=== PATIENT | female | born 1940 | race Two or more races ===

== ENCOUNTER 2025-03-17 20:07 | Inpatient (IN) | payer OTHER ==
[~2025-03-17] VITALS: Ht 152.4 cm; Wt 63.5 kg
[2025-03-17] MEDS ORDERED: PIPERACILLIN/TAZOBACTAM SODIUM 3.375 GM VIAL IV ONE (20:15)
[2025-03-17] MEDS ORDERED: 0.9 % SODIUM CHLORIDE 1,000 ML IV ONE (20:15)
[2025-03-17] MEDS ORDERED: IPRATROPIUM BROMIDE 0.5 MG/2.5 ML AMPUL.NEB IH ONE (20:30)
[2025-03-17] MEDS ORDERED: LEVALBUTEROL HCL 0.63 MG/3 ML SOLUTION IH ONE (20:30)
[2025-03-17 20:43] LABS: ABG PH 7.245 (7.35-7.45); ABG PO2 264.2 mmHg (80-100); BASE EXCESS 3.4 mmol/l; BICARBONATE 33.6 mmol/l (23-25); SaO2 99.8 %
[2025-03-17] MEDS ORDERED: NOREPINEPHRINE BITARTRATE 8 MG in DEXTROSE 5 % IN WATER 250 ML IV SCH (21:15)
[2025-03-17 21:25] LABS: BASO % 0.4 % (0.1-1.2); EOS # 0.02 (0.04-0.54); EOS % 0.1 % (0.7-7.0); HEMATOCRIT 47.3 % (34.1-44.9); HEMOGLOBIN 13.5 g/dL (11.2-15.7); LYMPH # 1.97 (1.18-3.74); LYMPH % 14.1 % (19.3-53.1); MEAN CORPUSCULAR HEMOGLOBIN 27.2 pg (25.6-32.2); MONO # 0.74 (0.24-0.82); MONO % 5.3 % (4.7-12.5); NEUT # 11.07 (1.56-6.13); NEUT % 79.6 % (34.0-71.1); PLATELET COUNT 255 K/uL (163-369); RED BLOOD COUNT 4.96 M/uL (3.93-5.22); RED CELL DISTRIBUTION WIDTH 18.8 % (11.6-14.4)
[2025-03-17 21:26] LABS: INR 2.39; PARTIAL THROMBOPLASTIN TIME 34.5 SECONDS (22.0-34.0)
[2025-03-17 21:26] LABS: URINE APPEARANCE Turbid; URINE BILIRRUBIN Negative (NEGATIVE); URINE BLOOD Moderate; URINE COLOR Yellow; URINE GLUCOSE Negative (NEGATIVE); URINE KETONE Negative (NEGATIVE); URINE LEUKOCYTE Large; URINE NITRATE Negative; URINE UROBILINOGEN 0.2 E.U./dl
[2025-03-17 21:27] LABS: URINE BACTERIA 2549.5 uL (0.0-1933); URINE CAST 3.78 uL (0.0-1.40); URINE EPITHELIAL CELLS 4.5 uL (0.0-38.8); URINE RBC 237.8 uL (0.0-20.8)
[2025-03-17 21:27] LABS: ALBUMIN 2.7 gm/dL (3.4-5.0); BILIRUBIN TOTAL 1.88 mg/dL (0.3-1.2); CALCIUM 8.5 mg/dL (8.5-10.1); CREATININE SERUM 2.29 mg/dL (0.55-1.02); GFR 20.25; GLOBULINA 3.3 G/DL (2.4-3.5); POTASSIUM 4.33 mEq/L (3.5-5.1)
[2025-03-17 21:28] LABS: PROTHROMBIN TIME 24.4 SECONDS (9.0-11.5)
[2025-03-17 21:43] LABS: URINE CRYSTALS NEGATIVE /HPF; URINE MUCUS MODERATE; URINE PROTEIN 100 (NEGATIVE); URINE WBC > 5548.3 uL (0.0-23.2); URINE YEAST FEW /hpf
[2025-03-17 22:04] LABS: ABG pCO2 79.2 mmHg (35-45); allen test SATISFACTORY; mode BPAP; puncture site RADIAL LEFT
[2025-03-17 22:05] LABS: o2 100 %
[2025-03-17] MEDS ORDERED: KAPSPARGO SPRIN25 MG PO (22:29)
[2025-03-17] MEDS ORDERED: FUROsemide 20 MG/2 ML VIAL IV ONE (22:30)
[2025-03-17] MEDS ORDERED: ELIQUIS2.5 MG PO (22:30)
[2025-03-17] MEDS ORDERED: PROTONIX20 MG PO (22:30)
[2025-03-17] MEDS ORDERED: LASIX20 MG (22:30)
--- NOTE | 2025-03-17 22:30 | NUR ---
PACIENTE TRAIDA EN AMBULANCIA, SE OBSERVA LETARGICA. FAMILIARES REFIEREN QUE TRAEN PACIENTE POR DIFICIULTAD RESPIRATORIA. PERSONAL DE AMBULANCIA VIOLA PACIENTE CON AMBU, PACIENTE SATURANDO EN 76%. SE ACOMODA PACIENTE EN AREA DE CRITICO, CAMA #3 CONECTADA A MONITOR CARDIACO Y OXIMETRIA DE PULSO CONTINUA. FAMILIARES FIRMAN DNR Y DNI.
--- NOTE | 2025-03-17 22:38 | NUR ---
SE EXTRAEN MUESTRAS DE LABORATORIO Y SE ADMINISTRAN MEDICAMENTOS YENI ORDEN MEDICA.
[2025-03-17] MEDS ORDERED: SODIUM BICARBONATE 1 MEQ/ML DISP.SYRIN 50ML IV ONE (23:15)
--- NOTE | 2025-03-18 00:03 | NUR ---
SE RECIBE PTE LETARGICA EN CAMA # 3 DE UNIDAD DE CRITICO EN CAMA CON CABECERA A 45 GRADOS CONECTADA MONITOR CARDIACO CON OXIMETRIA CONTINUA. PTE CON H/L X2 LIBRES DE EDEMA CON IV FLUIDS DE 0.9NSS BAJANDO A 80ML/HR Y DRIP DE LEVOPHED 8MG/250ML D5W BAJANDO A 5ML/HR. PTE CON BPAP COLOCADO CON LOS SIGUENTES PARAMETROS IPAP 16, EPAP 6, FIO 90%, RR 20/MIN. PTE CON VIRK COLOCADO BAJANDO A GRAVEDAD. SE MIDEN S/V A PTE Y SE DOCUMENTAN. SE TITULA DRIP DE LEVOPHED A 20ML/HR. SE NOTIFICA ESTUDIO DE CT PENDIENTE A REALIZAR. SE CASSANDRA MUESTRAS DE COVID Y INFLUENZA PENDIENTES. PTE CON DNR+DNI FIRMADO EN RECORD Y SISTEMA. PTE SE CONTINUA MONITORIANDO POR CAMBIOS.
[2025-03-18 00:30] LABS: COVID-19 AG NEGATIVE (NEGATIVE)
[2025-03-18 00:31] LABS: INFLUENZA A AG NEGATIVE (NEGATIVE); INFLUENZA B AG NEGATIVE (NEGATIVE)
[2025-03-18] MEDS ORDERED: FUROsemide 40 MG/4 ML VIAL IV SCH ×2 (01:00→17:00)
[2025-03-18] MEDS ORDERED: LEVALBUTEROL HCL 0.63 MG/3 ML SOLUTION IH SCH (06:56)
[2025-03-18] MEDS ORDERED: CEFTRIAXONE SODIUM 1,000 MG VIAL IV STA (06:57)
--- NOTE | 2025-03-18 07:50 | NUR ---
SE RECIBE PACIENTE ALERTA A ESTIMULOS AL MOMENTO EN AREA DE ICU-2 EN POSICION SEMI SENTADA CONECTADA A MONITOR CARDIACO Y OXIMETRIA DE PULSO CONTINUA. AL MOMENTO PACIENTE SE ENCUENTRA CON BIPAP. PACIENTE SE ENCUENTRA CANALIZADA CON ANGIOS #20 Y #24. AL MOMENTO PACIENTE SE ENCUENTRA CON 0.9NSS BAJANDO A 40ML/HRS Y LEVOPHED DE 8MG/250ML BAJANDO A 30ML/HRS. AL MOMENTO PACIENTE SE ENCUENTRA CON SONDA URINARIA BAJANDO POR GRAVEDAD CON EGRESO COLOR AMARILLO BRUMOSO.
[2025-03-18 08:15] LABS: ABG PO2 123.4 mmHg (80-100); BICARBONATE 36.9 mmol/l (23-25); SaO2 97.7 %; Tco2 39.9 mmol/l
[2025-03-18 08:36] LABS: ABG pCO2 96.3 mmHg (35-45); mode BPAP; o2 50 %; puncture site RT FEMORAL
[2025-03-18 08:37] LABS: ABG PH 7.201 (7.35-7.45)
[2025-03-18] MEDS ORDERED: MEROPENEM 1,000 MG VIAL IV STA (08:52)
[2025-03-18] MEDS ORDERED: LINEZOLID IN DEXTROSE 5% 600 MG/300 ML PIGGYBAG IV STA (08:54)
[2025-03-18] MEDS ORDERED: MEROPENEM 1,000 MG VIAL IV SCH (09:00)
[2025-03-18] MEDS ORDERED: LINEZOLID IN DEXTROSE 5% 600 MG/300 ML PIGGYBAG IV SCH (09:00)
[2025-03-18] MEDS ORDERED: PANTOPRAZOLE SODIUM 40 MG/VIAL VIAL IV SCH (09:08)
[2025-03-18] MEDS ORDERED: HYDROCORTISONE SODIUM SUCC/PF 50 MG/ML ML IV STA (09:09)
[2025-03-18] MEDS ORDERED: VASOPRESSIN 40 UNITS in 0.9 % SODIUM CHLORIDE 100 ML IV SCH (09:30)
[2025-03-18 10:12] LABS: BASO % 0.1 % (0.1-1.2); EOS # 0.01 (0.04-0.54); HEMATOCRIT 46.8 % (34.1-44.9); LYMPH # 1.49 (1.18-3.74); LYMPH % 6.9 % (19.3-53.1); MEAN CORPUSCULAR HEMOGLOBIN 26.7 pg (25.6-32.2); MONO # 0.95 (0.24-0.82); MONO % 4.4 % (4.7-12.5); NEUT % 88.2 % (34.0-71.1); PLATELET COUNT 272 K/uL (163-369); RED BLOOD COUNT 4.87 M/uL (3.93-5.22); RED CELL DISTRIBUTION WIDTH 18.4 % (11.6-14.4)
[2025-03-18 10:42] LABS: ERYTHROCYTE SEDIMENTATION RATE 31 mm/hr (0-30)
[2025-03-18 11:33] LABS: ALBUMIN 2.8 gm/dL (3.4-5.0); CALCIUM 8.6 mg/dL (8.5-10.1); CREATININE SERUM 2.35 mg/dL (0.55-1.02); GFR 19.66; GLOBULINA 3.9 G/DL (2.4-3.5); MAGNESIUM 1.6 mg/dL (1.8-2.4); PHOSPHOROUS 4.8 mg/dL (2.5-4.9); POTASSIUM 3.93 mEq/L (3.5-5.1); TOTAL PROTEIN 6.7 gm/dL (6.4-8.2)
[2025-03-18 11:34] LABS: C-REACTIVE PROTEIN 8.94 MG/DL (0.00-0.29); TSH 5.28 uIU/mL (0.358-3.74)
[2025-03-18] MEDS ORDERED: MAGNESIUM SULFATE IN WATER 50 ML IV NR (12:00)
[2025-03-18] MEDS ORDERED: DEXTROSE 5 % IN WATER 1,000 ML IV SCH (12:15)
[2025-03-18] MEDS ORDERED: FLUCONAZOLE IN NACL,ISO-OSM 200 ML IV NR (12:15)
[2025-03-18] MEDS ORDERED: HYDROCORTISONE SODIUM SUCC/PF 50 MG/ML ML IV SCH (17:00)
[2025-03-18 18:09] VITALS: BP 123/70; O2SAT 100
[2025-03-18 18:46] VITALS: BP 92/54
[2025-03-18 19:51] VITALS: BP 90/55; O2SAT 97
[2025-03-18] MEDS ORDERED: MEROPENEM 500 MG/VIAL VIAL IV SCH (21:00)
[2025-03-18 21:15] VITALS: BP 105/68
[2025-03-18 22:49] VITALS: BP 116/80
[2025-03-18 23:22] VITALS: BP 127/65; O2SAT 97
[2025-03-19] VITALS (25 sets, daily range): BP systolic 92–165; BP diastolic 54–88; O2SAT 97–100
[2025-03-19 07:05] LABS: HEMATOCRIT 42.2 % (34.1-44.9); HEMOGLOBIN 12.3 g/dL (11.2-15.7); RED BLOOD COUNT 4.37 M/uL (3.93-5.22)
[2025-03-19 07:06] LABS: BASO % 0.1 % (0.1-1.2); LYMPH # 0.83 (1.18-3.74); LYMPH % 4.4 % (19.3-53.1); MEAN CORPUSCULAR HEMOGLOBIN 28.1 pg (25.6-32.2); MONO % 4.3 % (4.7-12.5); NEUT # 17.07 (1.56-6.13); NEUT % 90.7 % (34.0-71.1); PLATELET COUNT 273 K/uL (163-369); RED CELL DISTRIBUTION WIDTH 17.9 % (11.6-14.4)
[2025-03-19 07:26] LABS: ALBUMIN 2.7 gm/dL (3.4-5.0); BILIRUBIN TOTAL 0.91 mg/dL (0.3-1.2); CALCIUM 8.2 mg/dL (8.5-10.1); CREATININE SERUM 2.54 mg/dL (0.55-1.02); GFR 17.97; GLOBULINA 3.2 G/DL (2.4-3.5); PHOSPHOROUS 4.9 mg/dL (2.5-4.9); POTASSIUM 3.49 mEq/L (3.5-5.1); TOTAL PROTEIN 5.9 gm/dL (6.4-8.2)
[2025-03-19] MEDS ORDERED: ENOXAPARIN SODIUM 30 MG/0.3 ML SYRINGE SUBCUTANEO SCH (09:00)
[2025-03-19] MEDS ORDERED: FLUCONAZOLE IN NACL,ISO-OSM 100 ML IV SCH (09:00)
[2025-03-19] MEDS ORDERED: HYDROCORTISONE SODIUM SUCC/PF 100 MG VIAL IV SCH (09:00)
[2025-03-19 09:53] LABS: ABG PH 7.257 (7.35-7.45); ABG PO2 360.4 mmHg (80-100); BASE EXCESS 2.2 mmol/l; SaO2 99.9 %
[2025-03-19 09:54] LABS: BICARBONATE 31.8 mmol/l (23-25); Tco2 34.1 mmol/l
[2025-03-19 09:55] LABS: allen test SATISFACTORY; mode BPAP; o2 100 %; puncture site RADIAL RIGHT
[2025-03-19] MEDS ORDERED: DEXTROSE 50 % IN WATER 0.5 G/ML VIAL IV PRN (10:15)
[2025-03-19] MEDS ORDERED: INSULIN LISPRO 1,000 UNIT/10 ML UNITS SUBCUTANEO PRN (10:15)
[2025-03-19] MEDS ORDERED: POTASSIUM CHLORIDE 20MEQ/100ML H2O PB IV NR (11:00)
[2025-03-19] MEDS ORDERED: FUROsemide 40 MG/4 ML VIAL IV SCH (17:00)
[2025-03-19] MEDS ORDERED: HYDROCORTISONE SODIUM SUCC/PF 50 MG/ML ML IV SCH (17:00)
[2025-03-19] MEDS ORDERED: AMINO ACIDS 4.25 %/DEXTROSE 5% 1,000 ML PERIFERAL SCH (17:00)
[2025-03-19 22:25] LABS: CHOL HDL RATIO 2.3 (0-5.0)
[2025-03-20] VITALS (22 sets, daily range): BP systolic 82–101; BP diastolic 54–71; O2SAT 97–100
[2025-03-20 09:26] LABS: BILIRUBIN TOTAL 0.66 mg/dL (0.3-1.2); CALCIUM 7.6 mg/dL (8.5-10.1); CREATININE SERUM 2.68 mg/dL (0.55-1.02); GFR 16.89; GLOBULINA 2.9 G/DL (2.4-3.5); MAGNESIUM 1.5 mg/dL (1.8-2.4); PHOSPHOROUS 2.8 mg/dL (2.5-4.9); TOTAL PROTEIN 4.9 gm/dL (6.4-8.2)
[2025-03-20 09:32] LABS: POTASSIUM 2.95 mEq/L (3.5-5.1)
[2025-03-20 10:10] LABS: ABG PH 7.343 (7.35-7.45); ABG PO2 153.5 mmHg (80-100); ABG pCO2 59.4 mmHg (35-45); BICARBONATE 31.5 mmol/l (23-25); SaO2 99.2 %; Tco2 33.4 mmol/l
[2025-03-20 10:18] LABS: allen test NO SATISFACTORY; mode BPAP; o2 50 %; puncture site RADIAL RIGHT
[2025-03-20] MEDS ORDERED: MAGNESIUM SULFATE IN WATER 50 ML IV STA (10:18)
[2025-03-20 10:29] LABS: BASO % 0.1 % (0.1-1.2); HEMATOCRIT 34.1 % (34.1-44.9); LYMPH % 2.4 % (19.3-53.1); MEAN CORPUSCULAR HEMOGLOBIN 28.1 pg (25.6-32.2); MONO # 0.53 (0.24-0.82); MONO % 3.2 % (4.7-12.5); NEUT # 15.34 (1.56-6.13); NEUT % 93.8 % (34.0-71.1); PLATELET COUNT 165 K/uL (163-369); RED BLOOD COUNT 3.67 M/uL (3.93-5.22)
[2025-03-20] MEDS ORDERED: DEXTROSE 50 % IN WATER 0.5 G/ML VIAL IV PRN (10:30)
[2025-03-20] MEDS ORDERED: INSULIN LISPRO 1,000 UNIT/10 ML UNITS SUBCUTANEO PRN (10:30)
[2025-03-20] MEDS ORDERED: RINGERS SOLUTION,LACTATED 1,000 ML IV SCH (10:30)
[2025-03-20 10:31] LABS: HEMOGLOBIN 10.3 g/dL (11.2-15.7)
[2025-03-20] MEDS ORDERED: POTASSIUM CHLORIDE IN WATER 40 MEQ/100 ML PIGGYBAG IV SCH (13:00)
[2025-03-20] MEDS ORDERED: MAGNESIUM SULFATE IN WATER 2 GM/50 ML PIGGYBAG IV NR (14:30)
[2025-03-20] MEDS ORDERED: BUMETANIDE 2.5 MG/10 ML VIAL IV SCH (17:00)
[2025-03-20] MEDS ORDERED: FUROsemide 20 MG/2 ML VIAL IV SCH (17:00)
[2025-03-20] MEDS ORDERED: HYDROCORTISONE SODIUM SUCC/PF 100 MG VIAL IV SCH (21:00)
[2025-03-21] VITALS (21 sets, daily range): BP systolic 81–123; BP diastolic 49–79; O2SAT 95–979
[2025-03-21 05:38] LABS: ABG PO2 138.2 mmHg (80-100); BASE EXCESS 3.2 mmol/l; BICARBONATE 29.5 mmol/l (23-25); SaO2 99.1 %
[2025-03-21 06:05] LABS: allen test SATISFACTORY; mode BPAP; o2 50 %; puncture site RADIAL RIGHT
[2025-03-21 06:57] LABS: BASO % 0.1 % (0.1-1.2); HEMATOCRIT 34.7 % (34.1-44.9); HEMOGLOBIN 10.8 g/dL (11.2-15.7); LYMPH % 3.3 % (19.3-53.1); MEAN CORPUSCULAR HEMOGLOBIN 28.1 pg (25.6-32.2); MONO # 0.46 (0.24-0.82); NEUT % 93.1 % (34.0-71.1); PLATELET COUNT 167 K/uL (163-369); RED BLOOD COUNT 3.85 M/uL (3.93-5.22); RED CELL DISTRIBUTION WIDTH 18.1 % (11.6-14.4)
[2025-03-21 10:30] LABS: ABG PH 7.422 (7.35-7.45); ABG PO2 74.6 mmHg (80-100); ABG pCO2 46.6 mmHg (35-45); BASE EXCESS 4.4 mmol/l; BICARBONATE 29.7 mmol/l (23-25); SaO2 95.3 %; Tco2 31.1 mmol/l
[2025-03-21 10:35] LABS: allen test SATISFACTORY; mode VENTURY MASK; o2 50 %; puncture site RADIAL RIGHT
[2025-03-21 12:59] LABS: ALBUMIN 2.2 gm/dL (3.4-5.0); CALCIUM 8.4 mg/dL (8.5-10.1); CREATININE SERUM 2.84 mg/dL (0.55-1.02); GFR 15.8; MAGNESIUM 2.5 mg/dL (1.8-2.4); POTASSIUM 4.99 mEq/L (3.5-5.1)
[2025-03-21 13:09] LABS: PHOSPHOROUS 1.6 mg/dL (2.5-4.9)
[2025-03-21] MEDS ORDERED: SOD PHOSPHATE,MONOBASIC-DIBAS 3 MMOL/ML VIAL IV SCH (17:00)
[2025-03-21] MEDS ORDERED: POTASSIUM PHOS,M-BASIC-D-BASIC 3 MM/ML VIAL IV SCH (17:00)
[2025-03-21] MEDS ORDERED: 0.9 % SODIUM CHLORIDE 1,000 ML IV SCH (20:00)
[2025-03-21] MEDS ORDERED: HYDROCORTISONE SODIUM SUCC/PF 50 MG/ML ML IV SCH (21:00)
[2025-03-22] VITALS (12 sets, daily range): BP systolic 94–127; BP diastolic 55–78; O2SAT 10–100
[2025-03-22 06:41] LABS: BASO % 0.1 % (0.1-1.2); HEMATOCRIT 32.5 % (34.1-44.9); HEMOGLOBIN 10.5 g/dL (11.2-15.7); LYMPH # 0.32 (1.18-3.74); LYMPH % 2.7 % (19.3-53.1); MEAN CORPUSCULAR HEMOGLOBIN 28.2 pg (25.6-32.2); MONO # 0.22 (0.24-0.82); MONO % 1.9 % (4.7-12.5); NEUT # 11.21 (1.56-6.13); NEUT % 94.9 % (34.0-71.1); PLATELET COUNT 152 K/uL (163-369); RED BLOOD COUNT 3.73 M/uL (3.93-5.22); RED CELL DISTRIBUTION WIDTH 18.3 % (11.6-14.4)
[2025-03-22 07:13] LABS: ALBUMIN 2.2 gm/dL (3.4-5.0); BILIRUBIN TOTAL 0.9 mg/dL (0.3-1.2); CALCIUM 7.8 mg/dL (8.5-10.1); CREATININE SERUM 2.94 mg/dL (0.55-1.02); GFR 15.18; GLOBULINA 2.5 G/DL (2.4-3.5); MAGNESIUM 2.2 mg/dL (1.8-2.4); PHOSPHOROUS 3.2 mg/dL (2.5-4.9); POTASSIUM 4.54 mEq/L (3.5-5.1); TOTAL PROTEIN 4.7 gm/dL (6.4-8.2)
[2025-03-22] MEDS ORDERED: CEFTRIAXONE SODIUM 2,000 MG in 0.9 % SODIUM CHLORIDE 100 ML IV SCH (09:00)
[2025-03-22] MEDS ORDERED: MIDODRINE HCL 5 MG TABLET PO SCH (17:00)
[2025-03-23 04:00] VITALS: BP 119/83; O2SAT 97
[2025-03-23 07:21] VITALS: BP 103/71; O2SAT 27
[2025-03-23 08:07] LABS: ALBUMIN 2.5 gm/dL (3.4-5.0); BILIRUBIN TOTAL 0.97 mg/dL (0.3-1.2); CALCIUM 8.1 mg/dL (8.5-10.1); CREATININE SERUM 2.94 mg/dL (0.55-1.02); GFR 15.18; GLOBULINA 2.9 G/DL (2.4-3.5); MAGNESIUM 2.1 mg/dL (1.8-2.4); POTASSIUM 4.25 mEq/L (3.5-5.1); TOTAL PROTEIN 5.4 gm/dL (6.4-8.2)
[2025-03-23 08:15] LABS: BASO % 0.1 % (0.1-1.2); HEMATOCRIT 35.3 % (34.1-44.9); HEMOGLOBIN 11.3 g/dL (11.2-15.7); LYMPH # 0.34 (1.18-3.74); MEAN CORPUSCULAR HEMOGLOBIN 27.6 pg (25.6-32.2); MONO # 0.26 (0.24-0.82); MONO % 2.3 % (4.7-12.5); NEUT # 10.51 (1.56-6.13); NEUT % 94.1 % (34.0-71.1); PLATELET COUNT 144 K/uL (163-369); RED CELL DISTRIBUTION WIDTH 18.6 % (11.6-14.4)
[2025-03-23 08:31] LABS: ABG PH 7.373 (7.35-7.45); ABG PO2 85.3 mmHg (80-100); ABG pCO2 44.7 mmHg (35-45); BASE EXCESS -0.1 mmol/l; BICARBONATE 25.4 mmol/l (23-25); SaO2 96.1 %; Tco2 26.8 mmol/l
[2025-03-23] MEDS ORDERED: HYDROCORTISONE SODIUM SUCC/PF 50 MG/ML ML IV SCH (09:00)
[2025-03-23 10:00] LABS: allen test SATISFACTORY; mode VENTURY MASK; o2 50 %; puncture site RADIAL RIGHT
[2025-03-23 12:00] VITALS: BP 144/85; O2SAT 100
[2025-03-23 15:14] VITALS: BP 101/58; O2SAT 100
[2025-03-23] MEDS ORDERED: SOD FERRIC GLUC COMPLX/SUCROSE 62.5 MG/5 ML AMPUL IV SCH (17:00)
[2025-03-23 20:33] VITALS: BP 118/74; O2SAT 100
[2025-03-23 23:12] VITALS: BP 122/72; O2SAT 97
[2025-03-24] VITALS (23 sets, daily range): BP systolic 75–129; BP diastolic 31–95; O2SAT 80–98
[2025-03-24] MEDS ORDERED: NOREPINEPHRINE BITARTRATE 1 MG/ML AMPUL IV ONE (01:34)
[2025-03-24] MEDS ORDERED: NOREPINEPHRINE BITARTRATE 8 MG in DEXTROSE 5 % IN WATER 250 ML IV SCH (01:45)
[2025-03-24 08:47] LABS: BASO % 0.1 % (0.1-1.2); HEMATOCRIT 35.9 % (34.1-44.9); HEMOGLOBIN 11.1 g/dL (11.2-15.7); LYMPH # 0.27 (1.18-3.74); LYMPH % 1.7 % (19.3-53.1); MONO # 0.71 (0.24-0.82); MONO % 4.4 % (4.7-12.5); NEUT # 15.12 (1.56-6.13); NEUT % 93.3 % (34.0-71.1); RED BLOOD COUNT 3.97 M/uL (3.93-5.22); RED CELL DISTRIBUTION WIDTH 18.4 % (11.6-14.4)
[2025-03-24] MEDS ORDERED: BUMETANIDE 2.5 MG/10 ML VIAL IV SCH (09:00)
[2025-03-24] MEDS ORDERED: AMIODARONE HCL 900 MG in DEXTROSE 5 % IN WATER 500 ML IV SCH (09:00)
[2025-03-24 09:02] LABS: PLATELET COUNT 102 K/uL (163-369)
[2025-03-24 09:27] LABS: ABG PH 7.213 (7.35-7.45); ABG pCO2 54.2 mmHg (35-45); BASE EXCESS -7.1 mmol/l; BICARBONATE 21.3 mmol/l (23-25); SaO2 95.2 %
[2025-03-24 09:31] LABS: allen test SATISFACTORY; o2 50 %; puncture site BRADIAL LEFT
[2025-03-24 10:31] LABS: ALBUMIN 2.5 gm/dL (3.4-5.0); BILIRUBIN TOTAL 1.2 mg/dL (0.3-1.2); CALCIUM 8.1 mg/dL (8.5-10.1); CREATININE SERUM 3.42 mg/dL (0.55-1.02); GFR 12.75; GLOBULINA 2.9 G/DL (2.4-3.5); MAGNESIUM 1.9 mg/dL (1.8-2.4); PHOSPHOROUS 6.3 mg/dL (2.5-4.9); POTASSIUM 4.87 mEq/L (3.5-5.1); TOTAL PROTEIN 5.4 gm/dL (6.4-8.2)
[2025-03-24] MEDS ORDERED: MEROPENEM 500 MG/VIAL VIAL IV SCH (14:12)
[2025-03-24] MEDS ORDERED: ANIDULAFUNGIN 100 MG VIAL IV NR (16:00)
[2025-03-24] MEDS ORDERED: (FF) Daptomycin 50 MG/ML IV SCH (17:00)
[2025-03-25] VITALS (24 sets, daily range): BP systolic 28–128; BP diastolic 40–89; O2SAT 88–100
[2025-03-25 09:57] LABS: ABG PH 7.144 (7.35-7.45)
[2025-03-25 09:58] LABS: ABG PO2 80.4 mmHg (80-100); ABG pCO2 60.4 mmHg (35-45); BASE EXCESS -9.5 mmol/l; BICARBONATE 20.3 mmol/l (23-25); SaO2 90.1 %; Tco2 22.1 mmol/l; allen test SATISFACTORY; mode BPAP; o2 100 %; puncture site RADIAL LEFT
[2025-03-25] MEDS ORDERED: AA 5 %/CALCIUM/LYTES/DEXT 20 % 2,000 ML CENTRAL SCH (17:00)
[2025-03-25] MEDS ORDERED: ANIDULAFUNGIN 100 MG VIAL IV SCH (17:00)
[2025-03-25 18:33] LABS: ANION GAP 16 (10.0-20.0); BLOOD UREA NITROGEN 75 mg/dL (7-18); BUN CREA RATIO 20 (7.0-25.0); CALCIUM 7.3 mg/dL (8.5-10.1); CARBON DIOXIDE 23 mEq/L (21-32); CHLORIDE 101 mmol/L (98-107); CREATININE SERUM 3.84 mg/dL (0.55-1.02); GFR 11.15; GLUCOSE FASTING 106 mg/dL (65-100); OSMOLALITY SERUM 293 MOSM/KG (275-295); POTASSIUM 5.39 mEq/L (3.5-5.1); SODIUM 135 mmol/L (136-145); TRIGLYCERIDES 43 mg/dL (0-150); VLDL 8 (0-39)
[2025-03-25 18:39] LABS: CHOL HDL RATIO 3.6 (0-5.0); CHOLESTEROL < 50 mg/dL (0-200); HDL 14 mg/dl (40-60); LDL 27 mg/dl (0-130)
[2025-03-26] VITALS (10 sets, daily range): BP systolic 58–164; BP diastolic 22–62; O2SAT 78–100
[2025-03-26] MEDS ORDERED: SODIUM BICARBONATE 1 MEQ/ML DISP.SYRIN 50ML IV STA (08:53)
[2025-03-26 09:06] LABS: ABG PH 6.922 (7.35-7.45)
[2025-03-26 09:07] LABS: ABG PO2 21.3 mmHg (80-100); BASE EXCESS -16.3 mmol/l; BICARBONATE 18.1 mmol/l (23-25); SaO2 12.9 %; Tco2 20.9 mmol/l; allen test SATISFACTORY; mode BPAP; o2 100 %; puncture site RADIAL LEFT
[2025-03-26] MEDS ORDERED: SODIUM BICARBONATE 50MEQ/50ML VIAL IV STA (09:22)
[2025-03-26] MEDS ORDERED: SODIUM BICARBONATE 1 MEQ/ML DISP.SYRIN 50ML IV SCH (10:30)
[2025-03-26] MEDS ORDERED: SODIUM BICARBONATE 150 MEQ in DEXTROSE 5 % IN WATER 1,000 ML IV SCH (10:45)
[2025-03-26] MEDS ORDERED: SODIUM POLYSTYRENE SULFONATE 30G/8 TSP PO STA (12:01)
[2025-03-26] MEDS ORDERED: 0.9 % SODIUM CHLORIDE 500 ML IV ONE (12:30)
== END 2025-03-26 13:05 | disposition expired | DRG 853 ==
LOC: ER 20:07 → ICU-2 03-18 09:44 → ICU 03-18 09:44 → MEDI 03-18 09:53 → ICU 03-18 09:59 → ICU-2 03-18 10:22 → ICU 03-19 01:52
PROVIDERS: General Practice; Internal Medicine; Internal Medicine Nephrology; ADMIT Internal Medicine; ATTEND Internal Medicine
PROC: 4A12X4Z Monitoring of Cardiac Electrical Activity, External Approach (ICD-10-PCS; 2025-03-17)
PROC: BB24ZZZ Computerized Tomography (CT Scan) of Bilateral Lungs (ICD-10-PCS; 2025-03-17)
PROC: B246ZZZ Ultrasonography of Right and Left Heart (ICD-10-PCS; 2025-03-18)
PROC: BW21ZZZ Computerized Tomography (CT Scan) of Abdomen and Pelvis (ICD-10-PCS; 2025-03-18)
PROC: 02HV33Z Insertion of Infusion Device into Superior Vena Cava, Percutaneous Approach (ICD-10-PCS; 2025-03-18)
PROC: B548ZZA Ultrasonography of Superior Vena Cava, Guidance (ICD-10-PCS; 2025-03-18)
PROC: 3E0F7GC Introduction of Other Therapeutic Substance into Respiratory Tract, Via Natural or Artificial Opening (ICD-10-PCS; 2025-03-18)
PROC: 5A09557 Assistance with Respiratory Ventilation, Greater than 96 Consecutive Hours, Continuous Positive Airway Pressure (ICD-10-PCS; 2025-03-18)
PROC: 0JBQ0ZZ Excision of Right Foot Subcutaneous Tissue and Fascia, Open Approach (ICD-10-PCS; principal; 2025-03-22)
PROC: B54MZZZ Ultrasonography of Right Upper Extremity Veins (ICD-10-PCS; 2025-03-22)
PROC: 8E0ZXY6 Isolation (ICD-10-PCS; 2025-03-24)
DX: B37.7 Candidal sepsis (principal); I21.A1 Myocardial infarction type 2; R65.21 Severe sepsis with septic shock; J96.02 Acute respiratory failure with hypercapnia; L89.613 Pressure ulcer of right heel, stage 3; K72.00 Acute and subacute hepatic failure without coma; N39.0 Urinary tract infection, site not specified; N17.9 Acute kidney failure, unspecified; R18.8 Other ascites; L02.415 Cutaneous abscess of right lower limb; J91.8 Pleural effusion in other conditions classified elsewhere; I13.0 Hypertensive heart and chronic kidney disease with heart failure and stage 1 through stage 4 chronic kidney disease, or unspecified chronic kidney disease; E87.4 Mixed disorder of acid-base balance; Z16.32 Resistance to antifungal drug(s); I50.82 Biventricular heart failure; R57.0 Cardiogenic shock; L89.152 Pressure ulcer of sacral region, stage 2; D69.6 Thrombocytopenia, unspecified; R22.31 Localized swelling, mass and lump, right upper limb; N18.30 Chronic kidney disease, stage 3 unspecified; E78.5 Hyperlipidemia, unspecified; Z66 Do not resuscitate; Z74.01 Bed confinement status